=== PATIENT | female | born 1995 | race Caucasian/White ===

== ENCOUNTER 2017-01-06 01:22 | Emergency (ER) | payer OTHER ==
[~2017-01-06] VITALS: Ht 175.3 cm; Wt 76.7 kg
[~2017-01-06 01:22] MED LIST: BCPILLS PO
[2017-01-06 01:32] VITALS: TEMP 36.8; O2SAT 98; Ht 175.3 cm; Wt 76.7 kg
[2017-01-06] MEDS ORDERED: TRAZ50TA35 PO (01:54)
[2017-01-06] MEDS ORDERED: MULT-506 PO (01:54)
[2017-01-06 02:17] LABS: BUN/CREATININE RATIO 8.7 (10-20); POTASSIUM 3.2 mmol/L (3.5-5.1)
[2017-01-06 02:23] LABS: PREG INTERNAL NEGATIVE QC NEG CLEAR BACKGROUND; PREG INTERNAL POSITIVE QC POS CONTROL LINE
[2017-01-06 03:05] LABS: CALCIUM 8.9 mg/dl (8.5-10.1)
[2017-01-06 06:09] VITALS: BP 115/84; PULSE 88; O2SAT 100
--- NOTE | 2017-01-06 07:23 | EMERGENCY ROOM VISIT NOTE ---
ED Visit Note First contact with patient: 01:25 CHIEF COMPLAINT: Altered mental status from Alcohol overdose HISTORY OF PRESENT ILLNESS: This 21 year old female patient presents to the emergency department via ambulance for evaluation of altered mental status, presumably from alcohol intoxication. The patient was found to be in [facility] outside of the [facility], a local bar, with her friend. The patient was vomiting profusely and not cooperative with EMS. The patient presents now for further evaluation. She does not report pain or chronic medical disease. She denies chance of . She admits to alcohol use tonight but no illicit drugs. REVIEW OF SYSTEMS: Review of systems was somewhat limited secondary to patient' s presumed alcohol intoxication status. Review of systems was performed to the best of our ability and reperformed as the patient began to sober up. All other systems were reviewed and are negative. ALLERGIES: See EMR MEDICATIONS: See EMR PMH: No chronic medical disease SOCIAL HISTORY: Student who lives locally PHYSICAL EXAM VITALS: Vitals are noted on the nurse's note and reviewed by myself. Vital signs stable. GENERAL: White female, who is in no acute distress and resting comfortably. Patient is visibly altered and smells of alcohol. HEAD: Normocephalic atraumatic. EARS: External ear normal. External auditory canals clear, tympanic membranes pearly shea without erythema or effusion bilaterally. EYES: Pupils equal round and reactive to light and accommodation. Conjunctivae without injection, sclerae without icterus. Extraocular movements intact. NOSE: Patent, turbinates without inflammation or discharge. MOUTH: Mucous membranes moist. Tonsils are not enlarged. Pharynx without erythema, blood, vomitus, or exudate. Uvula midline. Airway patent. NECK: Supple without nuchal rigidity. No lymphadenopathy. Cervical spine is nontender. HEART: Regular rate and rhythm without murmurs gallops or rubs. LUNGS: Clear to auscultation bilaterally without wheezes, rales or rhonchi. No retractions or accessory muscle use. ABDOMEN: Positive normal bowel sounds x 4. Soft, nontender, without masses or organomegaly. No guarding or rebound tenderness. MUSCULOSKELETAL: No muscle atrophy, erythema, or edema noted. Gross motor function intact to all extremities. NEURO: Patient was alert to person but not place or time. They appear with altered mental status. SKIN: The skin was without rashes, erythema, edema, or bruising. No Tenting of the skin. EMERGENCY DEPARTMENT COURSE: Physical exam and history was performed. Nursing notes and EMR were reviewed. The patient appears to be altered on my examination. I suspect this is from an alcohol overdose. Conservative care measures and aspiration precautions were instituted. The patient was placed on nuclear monitoring technician and watched during the patient's stay. The patient was placed in a prone position. Blood work was obtained and was reviewed. The patient's blood alcohol level was 251. This appears to be the primary cause of the altered status. Patient was reevaluated multiple times throughout the course of their emergency department stay. Over time the patient did sober up and was able to talk, walk , and drink fluids without difficulty. The patient was felt stable for discharge home. I discussed options of outpatient care as this is the patient to the emergency department lifetime for alcohol intoxication. She admits that she may have an alcohol problem. The patient was given alcohol intoxication handouts. The patient was discharged home in stable condition with a sober ride. Differential diagnosis: Etiologies such as alcohol intoxication, metabolic, infection, hypoglycemia, electrolyte abnormalities, cardiac sources, intracerebral event, toxicologic, neurologic, as well as others were entertained. DIAGNOSIS: Acute alcohol intoxication Problem List Medical Problems: (1) Bradycardia Status: Chronic (2) Neck pain Status: Chronic Current/Historical Medications Scheduled Multivitamin (Multivitamin), 1 TAB PO DAILY Trazodone Hcl (Trazodone), 50 MG PO HS Allergies Coded Allergies: No Known Allergies (Unverified , 01/06/17) Vital Signs Date Time Temp Pulse Resp B/P (MAP) Pulse Ox O2 Delivery O2 Flow Rate FiO2 01/06/17 06:09 88 16 115/84 100 01/06/17 05:13 88 01/06/17 04:15 84 18 115/84 100 Room Air 01/06/17 01:36 94 01/06/17 01:32 36.8 101 24 139/84 98 Room Air 01/06/17 01:32 98 Room Air Laboratory Results 01/06/17 01:31 Test 01/06/17 01:31 Anion Gap 8.0 mmol/L (3-11) Est Creatinine Clear Calc Drug Dose 92.3 ml/min Estimated GFR () 92.6 Estimated GFR (Non- 79.9 BUN/Creatinine Ratio 8.7 (10-20) Calcium Level 8.9 mg/dl (8.5-10.1) Human Chorionic Gonadotropin, Qual NEG (NEG) Ethyl Alcohol mg/dL 251.0 mg/dl (0-3) Departure Information Referrals No Doctor, Assigned (PCP) Patient Instructions [facility]
== END 2017-01-06 06:10 | disposition home or self-care (01) ==
LOC: EDBD 01:22 → C.EDB 01:23
DX: F10.129 Alcohol abuse with intoxication, unspecified (principal); Y90.8 Blood alcohol level of 240 mg/100 ml or more; Z79.899 Other long term (current) drug therapy; R00.1 Bradycardia, unspecified